=== PATIENT | female | born 1960 | race Caucasian/White ===

== ENCOUNTER 2020-10-01 07:46 | Emergency (ER) | payer MEDICAID ==
[~2020-10-01] VITALS: Ht 157.5 cm; Wt 75.0 kg
--- NOTE | 2020-10-01 08:07 | NUR ---
PT BIB EMS FOR SI. PT STATES SHE WILL DRINK HERSELF TO AND STRUGGLES W DEPRESSION. CHRONIC DRINKER. PT A&OX4, BEHAVIOR APPROPRIATE. DRINKS 2.5 [place] DAY. HAD 1.5 THIS AM. HX OF DM2, ASTHMA, FISTULA LEFT ARM. DAILYSIS M/W/F. DENIES CP, RESP SYMPTOMS, N/V
[2020-10-01 08:57] LABS: BASOPHILS % (AUTO) 3 % (0-1); EOSINOPHILS % (AUTO) 3 % (1-7); LYMPHOCYTES % (AUTO) 28 % (22-44); MEAN CORPUSCULAR HEMOGLOBIN 35.9 pg (27.0-34.8); MEAN CORPUSCULAR HGB CONC 34.7 g/dL (32.4-35.8); MONOCYTES % (AUTO) 11 % (2-9); NEUTROPHILS % (AUTO) 55 % (42-75); PLATELET COUNT 263 x10^3/uL (130-400); RED BLOOD COUNT 3.21 x10^6/uL (3.82-5.3); RED CELL DISTRIBUTION WIDTH 15.7 % (9.6-15.2)
[2020-10-01 08:59] LABS: MD NO
[2020-10-01 09:05] LABS: ALBUMIN 3.5 g/dL (3.4-5.0); ANION GAP 10 mmol/L (5-15); CALCIUM 8.8 mg/dL (8.5-10.1); CHLORIDE 93 mmol/L (98-107)
[2020-10-01 09:08] LABS: ALANINE AMINOTRANSFERASE 37 U/L (12-78); ALKALINE PHOSPHATASE 127 U/L (45-117); BILIRUBIN,TOTAL 0.4 mg/dL (0.2-1.0); CREATININE 5.44 mg/dL (0.55-1.02); TOTAL PROTEIN 7.4 g/dL (6.4-8.2)
[2020-10-01 09:09] LABS: SALICYLATE LEVEL < 1.7 mg/dL (2.8-20.0)
--- NOTE | 2020-10-01 09:42 | NUR ---
PT GIVEN WATER. WARM BLANKETS.
[2020-10-01 11:14] VITALS: BP 118/78
--- NOTE | 2020-10-01 12:44 | NUR ---
pt sleeping, meal tray ordered
--- NOTE | 2020-10-01 13:04 | NUR ---
pt unable to blow in breathlyzer, agrees to blood draw
--- NOTE | 2020-10-01 13:34 | NUR ---
GIVEN MEAL TRAY
--- NOTE | 2020-10-01 14:07 | NUR ---
Break RN note: Pt sitting in bed, NADN. Awaiting lab results for psych eval.
--- NOTE | 2020-10-01 15:15 | NUR ---
Pt KINJAL SWABBED, SASKIA VICTOR AT BEDSIDE.
--- NOTE | 2020-10-01 16:19 | NUR ---
PT RESTING, NO NEEDS AT THIS TIME
--- NOTE | 2020-10-01 16:44 | NUR ---
REFILLED PT WATER, PT RESTING, WATCHING TV.
--- NOTE | 2020-10-01 17:13 | NUR ---
Called for report on the patient. Report given by NEAL Salazar. They will be sending the patient soon to room 384.
[2020-10-02] MEDS ORDERED: FURO20TA3 PO (05:53)
[2020-10-02] MEDS ORDERED: calcium PO (05:53)
[2020-10-02] MEDS ORDERED: ALBU0.63 NEB (05:53)
[2020-10-02] MEDS ORDERED: AMLO-335 PO (05:53)
[2020-10-02] MEDS ORDERED: FLUT1DIS IH (05:53)
[2020-10-02] MEDS ORDERED: FERR324T5 PO (05:53)
[2020-10-02] MEDS ORDERED: SUCR1TAB PO (05:53)
[2020-10-02] MEDS ORDERED: METO1TAB7 PO (05:53)
[2020-10-02] MEDS ORDERED: LOPE2CAP PO (05:53)
[2020-10-02] MEDS ORDERED: SEVE800T8 PO (05:53)
[2020-10-03 06:29] LABS: BASOPHILS % (AUTO) 2 % (0-1); EOSINOPHILS % (AUTO) 5 % (1-7); LYMPHOCYTES % (AUTO) 27 % (22-44); MEAN CORPUSCULAR HEMOGLOBIN 36.2 pg (27.0-34.8); MEAN CORPUSCULAR HGB CONC 34.8 g/dL (32.4-35.8); MEAN PLATELET VOLUME 8.2 fL (7.4-10.4); MONOCYTES % (AUTO) 12 % (2-9); NEUTROPHILS % (AUTO) 55 % (42-75); PLATELET COUNT 222 x10^3/uL (130-400); RED BLOOD COUNT 3.03 x10^6/uL (3.82-5.3); RED CELL DISTRIBUTION WIDTH 15.4 % (9.6-15.2)
[2020-10-03 06:31] LABS: MD NO
[2020-10-03 06:41] LABS: ALBUMIN 3.7 g/dL (3.4-5.0); ANION GAP 10 mmol/L (5-15); CALCIUM 8.3 mg/dL (8.5-10.1); CHLORIDE 93 mmol/L (98-107)
[2020-10-03 06:47] LABS: ALANINE AMINOTRANSFERASE 30 U/L (12-78); ALKALINE PHOSPHATASE 96 U/L (45-117); BILIRUBIN,TOTAL 0.8 mg/dL (0.2-1.0); CREATININE 5.06 mg/dL (0.55-1.02); TOTAL PROTEIN 7.1 g/dL (6.4-8.2)
== END 2020-10-01 11:08 ==
LOC: ED 08:59
DX: F33.1 Major depressive disorder, recurrent, moderate (principal); Z20.822 Contact with and (suspected) exposure to COVID-19; R45.851 Suicidal ideations; I12.0 Hypertensive chronic kidney disease with stage 5 chronic kidney disease or end stage renal disease; E11.22 Type 2 diabetes mellitus with diabetic chronic kidney disease; N18.6 End stage renal disease; E87.6 Hypokalemia; Z99.2 Dependence on renal dialysis
CPT/HCPCS: 36415; 71045; 80053; 80299; 80320; 80329; 84100; 85025; 87426; 93005; 99284; 99285; G0480

== ENCOUNTER 2020-10-01 17:35 | Inpatient (IN) | payer MEDICAID ==
[~2020-10-01] VITALS: Ht 157.5 cm; Wt 74.2 kg
[2020-10-01] MEDS ORDERED: PLEASE ENTER HEIGHT AND WEIGHT MC SCH (18:00)
[2020-10-01 23:48] VITALS: BP 130/80
[2020-10-01 23:50] VITALS: BP 130/80
[2020-10-02] MEDS: ACETAMINOPHEN 325 MG TABLET PO PRN ×3 (01:50→16:42)
[2020-10-02] MEDS ORDERED: ALBU0.63 NEB (05:53)
[2020-10-02] MEDS ORDERED: FURO20TA3 PO (05:53)
[2020-10-02] MEDS ORDERED: SEVE800T8 PO (05:53)
[2020-10-02] MEDS ORDERED: FERR324T5 PO (05:53)
[2020-10-02] MEDS ORDERED: calcium PO (05:53)
[2020-10-02] MEDS ORDERED: LOPE2CAP PO (05:53)
[2020-10-02] MEDS ORDERED: SUCR1TAB PO (05:53)
[2020-10-02] MEDS ORDERED: METO1TAB7 PO (05:53)
[2020-10-02] MEDS ORDERED: FLUT1DIS IH (05:53)
[2020-10-02] MEDS ORDERED: AMLO-335 PO (05:53)
[2020-10-02 07:15] VITALS: BP 136/79
[2020-10-02] MEDS ORDERED: LORazepam 1MG TABLET PO PRN (08:00)
[2020-10-02 08:03] LABS: CHOL/HDL RATIO 2.3; FREE T4 (FREE THYROXINE) 1.13 ng/dL (0.76-1.46)
[2020-10-02] MEDS: ONDANSETRON ODT 4 MG PO PRN (08:15)
[2020-10-02] MEDS: FOLIC ACID 1 MG TABLET PO SCH (08:15)
[2020-10-02] MEDS: THIAMINE 100MG TABLET PO SCH (08:15)
[2020-10-02] MEDS: LORazepam 1MG TABLET PO SCH ×3 (08:16→20:18)
[2020-10-02] MEDS ORDERED: AMLODIPINE 5 MG TABLET PO ONE (15:30)
[2020-10-02] MEDS: SERTRALINE 50MG TABLET PO SCH (16:40)
[2020-10-02] MEDS: METOPROLOL TARTRATE 25 MG TAB PO SCH (17:53)
[2020-10-02 20:10] VITALS: BP 126/81
[2020-10-02] MEDS: DOXEPIN 25 MG CAPSULE PO SCH (20:18)
[2020-10-03] VITALS (7 sets, daily range): BP systolic 121–165; BP diastolic 68–99
[2020-10-03] MEDS: ONDANSETRON ODT 4 MG PO PRN ×2 (03:03→08:57)
[2020-10-03] MEDS: LORazepam 1MG TABLET PO SCH ×4 (03:03→21:06)
[2020-10-03] MEDS: ACETAMINOPHEN 325 MG TABLET PO PRN ×2 (03:06→21:06)
[2020-10-03] MEDS: METOPROLOL TARTRATE 25 MG TAB PO SCH ×2 (06:00→17:16)
[2020-10-03 07:06] LABS: MICROSCOPIC INDICATED
[2020-10-03 08:52] LABS: BASOPHILS % (AUTO) 2 % (0-1); EOSINOPHILS % (AUTO) 5 % (1-7); LYMPHOCYTES % (AUTO) 25 % (22-44); MEAN CORPUSCULAR HEMOGLOBIN 36.7 pg (27.0-34.8); MEAN CORPUSCULAR HGB CONC 35.7 g/dL (32.4-35.8); MONOCYTES % (AUTO) 11 % (2-9); NEUTROPHILS % (AUTO) 57 % (42-75); PLATELET COUNT 223 x10^3/uL (130-400); RED CELL DISTRIBUTION WIDTH 15.6 % (9.6-15.2)
[2020-10-03] MEDS: FERROUS SULFATE 325 MG TABLET PO SCH (08:52)
[2020-10-03] MEDS: FOLIC ACID 1 MG TABLET PO SCH (08:52)
[2020-10-03] MEDS: THIAMINE 100MG TABLET PO SCH (08:53)
[2020-10-03] MEDS: SERTRALINE 50MG TABLET PO SCH (08:53)
[2020-10-03] MEDS ORDERED: CEFDINIR 300 MG CAPSULE PO SCH ×2 (09:00→16:00)
[2020-10-03 09:02] LABS: MD NO
[2020-10-03 09:04] LABS: ALANINE AMINOTRANSFERASE 32 U/L (12-78); ALBUMIN 3.7 g/dL (3.4-5.0); ANION GAP 9 mmol/L (5-15); CALCIUM 8.2 mg/dL (8.5-10.1); CHLORIDE 94 mmol/L (98-107); CREATININE 5.26 mg/dL (0.55-1.02)
[2020-10-03 09:07] LABS: ALKALINE PHOSPHATASE 91 U/L (45-117); BILIRUBIN,TOTAL 0.7 mg/dL (0.2-1.0)
[2020-10-03] MEDS ORDERED: ALBUMIN HUMAN 25% 100 ML IV PRN (11:30)
[2020-10-03] MEDS: CEFDINIR 300 MG CAPSULE PO SCH (17:16)
[2020-10-03] MEDS: DOXEPIN 25 MG CAPSULE PO SCH (21:06)
[2020-10-04] MEDS: LORazepam 1MG TABLET PO SCH ×2 (03:00→08:21)
[2020-10-04] MEDS: METOPROLOL TARTRATE 25 MG TAB PO SCH ×2 (05:48→17:36)
[2020-10-04 06:05] VITALS: BP 147/84
[2020-10-04 07:40] VITALS: BP 161/83
[2020-10-04] MEDS: THIAMINE 100MG TABLET PO SCH (08:20)
[2020-10-04] MEDS: ACETAMINOPHEN 325 MG TABLET PO PRN (08:20)
[2020-10-04] MEDS: SERTRALINE 50MG TABLET PO SCH (08:21)
[2020-10-04] MEDS: FERROUS SULFATE 325 MG TABLET PO SCH (08:21)
[2020-10-04] MEDS: FOLIC ACID 1 MG TABLET PO SCH (08:21)
[2020-10-04] MEDS: ONDANSETRON ODT 4 MG PO PRN ×2 (08:21→20:02)
[2020-10-04] MEDS: CYANOCOBALAMIN 1,000 MCG/ML, 1ML IM SCH (09:09)
[2020-10-04] MEDS: CEFDINIR 300 MG CAPSULE PO SCH (17:35)
[2020-10-04 19:52] VITALS: BP 144/78
[2020-10-04] MEDS: DOXEPIN 25 MG CAPSULE PO SCH (20:02)
[2020-10-05 05:54] VITALS: BP 151/85
[2020-10-05] MEDS: METOPROLOL TARTRATE 25 MG TAB PO SCH ×2 (06:02→18:02)
[2020-10-05 06:36] LABS: ANION GAP 11 mmol/L (5-15); CALCIUM 8.2 mg/dL (8.5-10.1); CHLORIDE 100 mmol/L (98-107)
[2020-10-05 06:41] LABS: % IRON SATURATION 20 % (20-55); CREATININE 6.03 mg/dL (0.55-1.02); IRON LEVEL 58 mcg/dL (50-170); TOTAL IRON BINDING CAPACITY 289 mcg/dL (250-450)
[2020-10-05 07:29] VITALS: BP 123/70
[2020-10-05] MEDS: SERTRALINE 50MG TABLET PO SCH (08:48)
[2020-10-05] MEDS: FOLIC ACID 1 MG TABLET PO SCH (08:48)
[2020-10-05] MEDS: FERROUS SULFATE 325 MG TABLET PO SCH (08:48)
[2020-10-05] MEDS: THIAMINE 100MG TABLET PO SCH (08:49)
[2020-10-05] MEDS: CYANOCOBALAMIN 1,000 MCG/ML, 1ML IM SCH (08:49)
[2020-10-05] MEDS ORDERED: LOPERAMIDE 1 MG/5 ML, 10ML UDC PO PRN (11:00)
[2020-10-05] MEDS: LOPERAMIDE 1 MG/7.5 ML LIQUID PO PRN (11:15)
[2020-10-05] MEDS: CEFDINIR 300 MG CAPSULE PO SCH (18:02)
[2020-10-05 19:41] VITALS: BP 113/74
[2020-10-05] MEDS: DOXEPIN 25 MG CAPSULE PO SCH (20:18)
[2020-10-06 04:57] LABS: ALBUMIN 4.2 g/dL (3.4-5.0); ANION GAP 5 mmol/L (5-15); CALCIUM 8.4 mg/dL (8.5-10.1); CHLORIDE 97 mmol/L (98-107)
[2020-10-06 05:56] VITALS: BP 124/63
[2020-10-06] MEDS: METOPROLOL TARTRATE 25 MG TAB PO SCH (05:59)
[2020-10-06 07:39] VITALS: BP 150/81
[2020-10-06] MEDS: SERTRALINE 50MG TABLET PO SCH (08:18)
[2020-10-06] MEDS: FERROUS SULFATE 325 MG TABLET PO SCH (08:18)
[2020-10-06] MEDS: FOLIC ACID 1 MG TABLET PO SCH (08:18)
[2020-10-06] MEDS: THIAMINE 100MG TABLET PO SCH (08:18)
[2020-10-06] MEDS: CYANOCOBALAMIN 1,000 MCG/ML, 1ML IM SCH (11:35)
[2020-10-06] MEDS ORDERED: DOXE25CA PO (13:14)
[2020-10-06] MEDS ORDERED: GLIP5TAB10 PO (13:14)
[2020-10-06] MEDS ORDERED: SERT50TA28 PO (13:14)
[2020-10-06] MEDS: LOPERAMIDE 1 MG/7.5 ML LIQUID PO PRN (13:59)
[2020-10-06] MEDS ORDERED: CEFD300C37 PO (14:54)
[2020-10-07] MEDS ORDERED: CYANOCOBALAMIN 1,000 MCG TABLET PO SCH (09:00)
== END 2020-10-06 15:00 | disposition home or self-care (01) | DRG 751 ==
LOC: 3E 17:36
PROVIDERS: ADMIT Psychiatry & Neurology Psychosomatic Medicine; ATTEND Psychiatry & Neurology Psychosomatic Medicine
PROC: 5A1D70Z Performance of Urinary Filtration, Intermittent, Less than 6 Hours Per Day (ICD-10-PCS; principal; 2020-10-01)
PROC: 5A1D70Z Performance of Urinary Filtration, Intermittent, Less than 6 Hours Per Day (ICD-10-PCS; 2020-10-03)
PROC: 5A1D70Z Performance of Urinary Filtration, Intermittent, Less than 6 Hours Per Day (ICD-10-PCS; 2020-10-05)
DX: F33.2 Major depressive disorder, recurrent severe without psychotic features (principal); R45.851 Suicidal ideations; I12.0 Hypertensive chronic kidney disease with stage 5 chronic kidney disease or end stage renal disease; N18.6 End stage renal disease; K31.84 Gastroparesis; E11.43 Type 2 diabetes mellitus with diabetic autonomic (poly)neuropathy; E11.22 Type 2 diabetes mellitus with diabetic chronic kidney disease; E78.5 Hyperlipidemia, unspecified; E87.1 Hypo-osmolality and hyponatremia; E87.6 Hypokalemia; D75.89 Other specified diseases of blood and blood-forming organs; F10.239 Alcohol dependence with withdrawal, unspecified; G47.00 Insomnia, unspecified; Y90.9 Presence of alcohol in blood, level not specified; D63.1 Anemia in chronic kidney disease; Z60.2 Problems related to living alone; N39.0 Urinary tract infection, site not specified; B96.20 Unspecified Escherichia coli [E. coli] as the cause of diseases classified elsewhere; Z99.2 Dependence on renal dialysis; Z79.899 Other long term (current) drug therapy; Z81.1 Family history of alcohol abuse and dependence; Z81.8 Family history of other mental and behavioral disorders; Z79.84 Long term (current) use of oral hypoglycemic drugs; Z91.5 Personal history of self-harm
CPT/HCPCS: 36415; 80048; 80053; 80061; 81001; 82040; 82607; 82728; 82962; 83540; 83550; 83735; 84100; 84439; 84443; 85025; 86705; 86706; 87077; 87086; 87186; 87340; 90935; 93005; Q0162; J3420

== ENCOUNTER 2021-01-17 13:10 | Emergency (ER) | payer MEDICAID ==
[~2021-01-17] VITALS: Ht 157.5 cm; Wt 69.0 kg
[~2021-01-17 13:10] MED LIST: ALBU0.63 NEB; AMLO-335 PO; CEFD300C37 PO; DOXE25CA PO; FERR324T5 PO; FLUT1DIS IH; FURO20TA3 PO; GLIP5TAB10 PO; LOPE2CAP PO; METO1TAB7 PO; SERT50TA28 PO; SEVE800T8 PO; SUCR1TAB PO; calcium PO
--- NOTE | 2021-01-17 13:25 | NUR ---
PT. ARRIVES BY [facility] WITH C/O WANTING DETOX FROM ETOH. 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 PT. IS A & O X 4 WITH A GCS OF 15. PUPILS ARE PERRLA. NECK IS MIDLINE WITHOUT JVD NOTED. CHEST RISE AND FALL IS SYMMETRICAL. LUNGS ARE CTA. ABD. IS SOFT AND NON-TENDER WITH BS + X 4 QUADS. PULSES ARE +2 THROUGHOUT. PT.'S HOB IS ELEVATED GREATER THAN 30 DEGREES. PT. HAS THE CP MONITOR IN PLACE AND SHE WAS GIVEN A BLANKET FOR WARMTH. PT.'S SIDERAILS REMAIN UP X [address] WITH THE CALL LIGHT IN PLACE.
[2021-01-17 14:00] LABS: BASOPHILS % (AUTO) 2 % (0-1); EOSINOPHILS % (AUTO) 3 % (1-7); LYMPHOCYTES % (AUTO) 19 % (22-44); MEAN CORPUSCULAR HEMOGLOBIN 36.2 pg (27.0-34.8); MEAN CORPUSCULAR HGB CONC 34.6 g/dL (32.4-35.8); MEAN PLATELET VOLUME 8.1 fL (7.4-10.4); MONOCYTES % (AUTO) 13 % (2-9); NEUTROPHILS % (AUTO) 64 % (42-75); PLATELET COUNT 216 x10^3/uL (130-400); RED BLOOD COUNT 2.74 x10^6/uL (3.82-5.3); RED CELL DISTRIBUTION WIDTH 14.6 % (9.6-15.2)
[2021-01-17] MEDS ORDERED: SODIUM CHLORIDE FLUSH 10ML SYR IVF ONE (14:00)
[2021-01-17] MEDS ORDERED: FAMOTIDINE 20 MG/2 ML IVPush ONE (14:00)
[2021-01-17] MEDS ORDERED: SODIUM CHLORIDE 0.9% 1,000ML IVBOLUS ONE (14:00)
[2021-01-17] MEDS ORDERED: ONDANSETRON 2MG/ML, 2ML IVPush ONE (14:00)
[2021-01-17 14:01] LABS: MD NO
[2021-01-17 14:12] LABS: ALANINE AMINOTRANSFERASE 56 U/L (12-78); ALBUMIN 3.4 g/dL (3.4-5.0); ANION GAP 10 mmol/L (5-15); CALCIUM 7.4 mg/dL (8.5-10.1); CHLORIDE 95 mmol/L (98-107); CREATININE 4.04 mg/dL (0.55-1.02)
[2021-01-17 14:14] LABS: ALKALINE PHOSPHATASE 94 U/L (45-117); BILIRUBIN,TOTAL 0.4 mg/dL (0.2-1.0); TOTAL PROTEIN 6.7 g/dL (6.4-8.2)
[2021-01-17] MEDS ORDERED: FAMOTIDINE 20 MG/2 ML ONE (14:53)
[2021-01-17] MEDS ORDERED: ONDANSETRON 2MG/ML, 2ML ONE (14:53)
--- NOTE | 2021-01-17 14:56 | NUR ---
PT.'S VITALS REMAIN STABLE. IV ACCESS ESTABLISHED AND PT. WAS MEDICATED ORDERED. DISCUSSED HOLDING PT.'S NS 1 LITER BOLUS WITH JERSEY Alexis. PT. MISSED DIALYSIS TODAY.
--- NOTE | 2021-01-17 16:26 | NUR ---
PT. WAS GIVEN DISCHARGE INSTRUCTIONS AND DETOX REFERRAL WELL A CAB SLIP. VSS. PT.'S IV WAS DCD', CATH TIP INTACT. PRESSURE HELD WITH HEMOSTASIS ACHIEVED. PT. WAS AMBULATORY TO THE AND TAKEN TO THE LOBBY.
[2021-01-17 16:27] VITALS: BP 129/76
--- NOTE | 2021-01-17 16:41 | NUR ---
PT. DRESSED HERSELF AND WAS AMBULATORY TO THE TAXI WITHOUT ASSISTANCE.
== END 2021-01-17 16:43 | disposition home or self-care (01) ==
LOC: ED 13:28
DX: F10.20 Alcohol dependence, uncomplicated (principal); D64.9 Anemia, unspecified; K85.90 Acute pancreatitis without necrosis or infection, unspecified; I12.0 Hypertensive chronic kidney disease with stage 5 chronic kidney disease or end stage renal disease; N18.6 End stage renal disease; E78.5 Hyperlipidemia, unspecified; Z99.2 Dependence on renal dialysis; Y90.0 Blood alcohol level of less than 20 mg/100 ml; Z90.49 Acquired absence of other specified parts of digestive tract
CPT/HCPCS: 36415; 80053; 80320; 83690; 83735; 84100; 85025; 96374; 96375; 99284; J2405; G0480